=== PATIENT | female | born 1950 | race Caucasian/White ===

== ENCOUNTER → 2017-02-25 | Outpatient (CLI) | payer MEDICARE, BC ==
--- NOTE | 2017-02-25 11:09 | RAD ---
EXAM: Chest, 2 views. HISTORY: Productive cough and sinus drainage. COMPARISON: 06/05/2015. FINDINGS: Frontal and lateral views of the chest are obtained. There is a 1.8 cm nodular opacity overlying the right upper lobe. There is no effusion or pneumothorax. The heart is normal in size. There is a moderate to severe chronic mid thoracic compression fracture. There are advanced degenerative changes involving both shoulders. IMPRESSION: 1.8 cm nodular opacity overlying the right upper lobe, concerning for neoplasm. CT is recommended for characterization.
== END | disposition home or self-care (01) ==
LOC: DXRADRC 10:56
PROVIDERS: ATTEND Physician Assistant
DX: R05 Cough (principal); M48.54XA Collapsed vertebra, not elsewhere classified, thoracic region, initial encounter for fracture; M19.011 Primary osteoarthritis, right shoulder; M19.012 Primary osteoarthritis, left shoulder
CPT/HCPCS: 71020

== ENCOUNTER → 2017-03-04 | Outpatient (CLI) | payer MEDICARE, BC ==
[~2017-03-04] MED LIST: IOHEXOL 300 MG/ML 75 ML VIAL. IV ONE
--- NOTE | 2017-03-04 11:42 | RAD ---
CT of the chest without contrast, 03/04/2017: History: Abnormal chest radiograph No IV contrast was administered for this exam due to lack of adequate IV access. Comparison is made to a study from 05/28/2011. A bilobed spiculated soft tissue nodule has developed in the lateral aspect of the right lower lobe as best seen on image 42 of series #2. It measures approximately 25 x 26 x 12 mm. It is not calcified. There is a small triangular-shaped partially calcified opacity in the lateral aspect of the left upper lobe compatible with scarring or old granulomatous disease. A small unchanged branching linear opacity in the right upper lobe is also probably a scar. There appear to be several other smaller scattered parenchymal scars. There is no evidence of pleural fluid. There is mild calcific plaquing of the thoracic aorta without evidence of aneurysm. Minimal coronary artery calcification is noted. Several small mediastinal lymph nodes are seen without evidence of pathologic enlargement. A trace amount of pericardial fluid is present. There is an old moderate vertebral compression fracture at the T10 level. There are moderate scattered degenerative changes throughout the thoracic spine. IMPRESSION: 1. Right lower lobe pulmonary mass suggesting a primary lung malignancy. 2. Bilateral pulmonary scarring. 3. Old T10 vertebral compression fracture PQRS Compliance Statement: One or more of the following individualized dose reduction techniques were utilized for this examination: 1. Automated exposure control 2. Adjustment of the mA and/or kV according to patient size 3. Use of iterative reconstruction technique
== END | disposition home or self-care (01) ==
LOC: CT 10:35
PROVIDERS: ATTEND Physician Assistant
DX: J98.4 Other disorders of lung (principal); R91.1 Solitary pulmonary nodule; R91.8 Other nonspecific abnormal finding of lung field; I25.10 Atherosclerotic heart disease of native coronary artery without angina pectoris; I70.0 Atherosclerosis of aorta; M47.894 Other spondylosis, thoracic region; M48.54XD Collapsed vertebra, not elsewhere classified, thoracic region, subsequent encounter for fracture with routine healing
CPT/HCPCS: 71250; Q9967

== ENCOUNTER → 2017-04-28 | Outpatient (CLI) | payer MEDICARE, BC ==
--- NOTE | 2017-04-28 12:35 | RAD ---
CT of the chest without contrast, 04/28/2017: History: Follow-up lung nodule Noncontrast scans were obtained with multiplanar reconstructions produced. Comparison is made to a study from 03/04/2017. There is calcific plaquing of the thoracic aorta without evidence of aneurysm. Several coronary artery calcifications are noted. Small mediastinal lymph nodes are present without evidence of pathologic enlargement. There are scattered calcified granulomata in the lungs. There are scattered linear opacities in the lungs compatible with scars. There is an unchanged thin triangular opacity in the lateral aspect of left upper lobe which is partially calcified, compatible scarring. Some of these opacities are better defined on the current study due to the fact that thinner axial reconstructions were produced for today's exam. A spiculated mass seen in the right lower lobe on the previous study has resolved. There is only a thin residual linear opacity in this region, compatible with a scar. No new pulmonary mass or significant infiltrate is seen. There is no evidence of pleural fluid. There are scattered degenerative changes in the spine. There is an unchanged lower thoracic vertebral compression fracture at T10. IMPRESSION: 1. Interval resolution of the right lower lobe pulmonary mass seen on 03/04/2017. This lesion was presumably infectious or inflammatory in nature. 2. Scattered bilateral pulmonary scars. 3. No new abnormality is detected. PQRS Compliance Statement: One or more of the following individualized dose reduction techniques were utilized for this examination: 1. Automated exposure control 2. Adjustment of the mA and/or kV according to patient size 3. Use of iterative reconstruction technique
== END | disposition home or self-care (01) ==
LOC: CT 11:24
PROVIDERS: ATTEND Internal Medicine Critical Care Medicine
DX: R91.1 Solitary pulmonary nodule (principal); J84.10 Pulmonary fibrosis, unspecified; J98.4 Other disorders of lung; R91.8 Other nonspecific abnormal finding of lung field; I70.0 Atherosclerosis of aorta; M48.54XA Collapsed vertebra, not elsewhere classified, thoracic region, initial encounter for fracture
CPT/HCPCS: 71250

== ENCOUNTER 2020-03-14 13:15 | Emergency (ER) | payer MEDICARE, BC ==
[~2020-03-14] VITALS: Ht 149.9 cm; Wt 48.0 kg
[2020-03-14] MEDS ORDERED: IV NORMAL SALINE 1,000ML 1,000 ML IV ONE (13:45)
[2020-03-14] MEDS ORDERED: FAMOTIDINE 20 MG/2 ML VIAL IVP ONE (14:00)
[2020-03-14] MEDS ORDERED: ONDANSETRON PF 4 MG/2 ML VIAL. IVP ONE (14:00)
[2020-03-14 14:19] LABS: BASO % 0 % (0-3); EOS # 0.1 x10^3/uL (0.0-0.7); EOS % 2 % (0-3); HEMATOCRIT 45.2 % (36.0-47.0); HEMOGLOBIN 14.7 g/dL (12.0-15.5); LYMPH # 1.5 x10^3/uL (1.0-4.8); LYMPH % 17 % (24-48); MEAN CORPUSCULAR HEMOGLOBIN 29 pg (25-35); MEAN CORPUSCULAR HGB CONC 33 g/dL (31-37); MEAN CORPUSCULAR VOLUME 88 fL (79-100); MONO # 0.7 x10^3/uL (0.0-1.1); MONO % 8 % (0-9); NEUT # 6.4 x10^3uL (1.8-7.7); NEUT % 74 % (31-73); PLATELET COUNT 289 x10^3/uL (140-400); RED BLOOD COUNT 5.11 x10^6/uL (3.50-5.40); RED CELL DISTRIBUTION WIDTH 15.9 % (11.5-14.5); WHITE BLOOD COUNT 8.7 x10^3/uL (4.0-11.0)
--- NOTE | 2020-03-14 14:29 | PHYS DOC ---
General Adult EDM: Chief Complaint: COUGH HPI: HPI: Patient is a [age] year old [sex] who presents with [] Review of Systems: Review of Systems: Constitutional: Denies fever or chills Eyes: Denies change in visual acuity HENT: Denies nasal congestion or sore throat Respiratory: Denies cough or shortness of breath Cardiovascular: Denies chest pain or edema GI: Denies abdominal pain, nausea, vomiting, bloody stools or diarrhea : Denies dysuria Musculoskeletal: Denies back pain or joint pain Integument: Denies rash Neurologic: Denies headache, focal weakness or sensory changes Endocrine: Denies polyuria or polydipsia Lymphatic: Denies swollen glands Psychiatric: Denies depression or anxiety Heart Score: Risk Factors: Risk Factors: DM, Current or recent (<one month) smoker, HTN, HLP, family history of CAD, obesity. Risk Scores: Score 0 - 3: 2.5% MACE over next 6 weeks - Discharge Home Score 4 - 6: 20.3% MACE over next 6 weeks - Admit for Clinical Observation Score 7 - 10: 72.7% MACE over next 6 weeks - Early Invasive Strategies Current Medications: Current Meds: Current Medications Medications (Trade) Dose Ordered Sig/Jan Start Time Stop Time Status Last Admin Dose Admin Famotidine (Pepcid Vial) 20 mg 1X ONCE 03/14/20 14:00 03/14/20 14:01 DC 03/14/20 14:08 20 MG Ondansetron HCl (Zofran) 4 mg 1X ONCE 03/14/20 14:00 03/14/20 14:01 DC 03/14/20 14:08 4 MG Sodium Chloride 1,000 ml @ 1,000 mls/hr 1X ONCE 03/14/20 13:45 03/14/20 14:44 03/14/20 14:08 1,000 MLS/HR Allergies: Allergies: Allergies Coded Allergies Type Severity Reaction Last Updated Verified cephaeline Allergy Unknown 03/04/17 Yes fentanyl Allergy Unknown 03/04/17 Yes morphine Allergy Unknown 03/04/17 Yes Physical Exam: PE: Constitutional: Well developed, well nourished, no acute distress, non-toxic appearance. [] HENT: Normocephalic, atraumatic, bilateral external ears normal, oropharynx moist, no oral exudates, nose normal. [] Eyes: PERRLA, EOMI, conjunctiva normal, no discharge. [] Neck: Normal range of motion, no tenderness, supple, no stridor. [] Cardiovascular:Heart rate regular rhythm, no murmur [] Lungs & Thorax: Bilateral breath sounds clear to auscultation [] Abdomen: Bowel sounds normal, soft, no tenderness, no masses, no pulsatile masses. [] Skin: Warm, dry, no erythema, no rash. [] Back: No tenderness, no CVA tenderness. [] Extremities: No tenderness, no cyanosis, no clubbing, ROM intact, no edema. [] Neurologic: Alert and oriented X 3, normal motor function, normal sensory function, no focal deficits noted. [] Psychologic: Affect normal, judgement normal, mood normal. [] Current Patient Data: Labs: Laboratory Tests Test 03/14/20 13:50 White Blood Count 8.7 x10^3/uL (4.0-11.0) Red Blood Count 5.11 x10^6/uL (3.50-5.40) Hemoglobin 14.7 g/dL (12.0-15.5) Hematocrit 45.2 % (36.0-47.0) Mean Corpuscular Volume 88 fL (79-100) Mean Corpuscular Hemoglobin 29 pg (25-35) Mean Corpuscular Hemoglobin Concent 33 g/dL (31-37) Red Cell Distribution Width 15.9 % (11.5-14.5) H Platelet Count 289 x10^3/uL (140-400) Neutrophils (%) (Auto) 74 % (31-73) H Lymphocytes (%) (Auto) 17 % (24-48) L Monocytes (%) (Auto) 8 % (0-9) Eosinophils (%) (Auto) 2 % (0-3) Basophils (%) (Auto) 0 % (0-3) Neutrophils # (Auto) 6.4 x10^3uL (1.8-7.7) Lymphocytes # (Auto) 1.5 x10^3/uL (1.0-4.8) Monocytes # (Auto) 0.7 x10^3/uL (0.0-1.1) Eosinophils # (Auto) 0.1 x10^3/uL (0.0-0.7) Basophils # (Auto) 0.0 x10^3/uL (0.0-0.2) EKG: EKG: @1357 NSR at 96ms, QRS 82ms, QT/QTc 336/431ms Radiology/Procedures: Radiology/Procedures: [] Course & Med Decision Making: Course & Med Decision Making Pertinent Labs and Imaging studies reviewed. (See chart for details) [] Dragon Disclaimer: Dragon Disclaimer: This electronic medical record was generated, in whole or in part, using a voice recognition dictation system. Departure Departure: Impression: Primary Impression: Nausea vomiting and diarrhea Additional Impressions: Suspected 2019 novel coronavirus infection Hypomagnesemia Aphthous ulcer of mouth Disposition: 01 DC HOME SELF CARE/HOMELESS Condition: STABLE Referrals: DARREN SMITH MD (PCP) Patient Instructions: Canker Sores, Diarrhea, [id number], Diet for Diarrhea, Adult, Hypomagnesemia, Nausea and Vomiting, [id number] Additional Instructions: You have been tested for or diagnosed with COVID-19. It is an infection caused by a new type of coronavirus. COVID-19 will cause cold-like or mild flu symptoms in most. It can cause more severe symptoms like problems breathing in some. There is no treatment for COVID-19. The body will clear the infection over time. Self-care will help to ease discomfort. Steps to Take: Self-Care Rest as needed. Healthy habits may help you feel better. Steps include: Choose healthy foods including fruits and vegetables. Drink water throughout the day. Get plenty of sleep each night. If you smoke, try to quit. It may ease breathing. Avoid alcohol. Keep Others Healthy The virus can spread to others. Droplets are released every time you sneeze or cough. The droplets can get into the mouth, nose, or eyes of people near you and lead to infection. To lower the chances of spreading COVID-19 to others: Stay at home until your doctor has said it is safe to leave. If you tested positive this will mean staying isolated until both of the following are true: At least 7 days have passed since the start of illness. You are free of fever for at least 72 hours without the use of medicine. During this time: - Avoid public areas, events, or transportation. Do not return to work or school until your doctor has said it is safe to do so. - Call ahead if you need to go to a medical center. Let them know you may have COVID-19. It will help them guide you where to go. They may also ask you to wear a facemask when you come to the office. - If you call for emergency medical services, let them know you may have COVID- 19. While at home: - Try to avoid close contact with others. Stay about 6 feet away. - If possible, spend most of your time in a separate room from others. - Use a face mask if you will be in close contact with others such as sharing a room or vehicle. - Have someone wipe down common surfaces in the home. Use household emt every day on areas like doorknobs, counters, or sinks. - Cough or sneeze into a tissue. Throw the tissue away right after use. If a tissue is not available, cough or sneeze into your elbow. - Wash your hands often. Wash them after sneezing or coughing. Use soap and water and wash for at least 20 seconds. Alcohol based hand grain cleaner can be used if soap and water is not available. - Do not prepare food for others. Avoid sharing personal items like forks, spoons, or toothbrushes. - Avoid close contact with pets while you are sick. There is no evidence of the virus passing to pets. This is a safety step until more is known about this virus. Isolation can be frustrating. Social interaction can help. Keep in touch with friends and family through phone and tech options. You can still interact with others in your home, just keep a safe distance of about 6 feet. Follow-up: Your doctors office will check in with you to see if there are any changes in your health. You may be asked to keep track of symptoms to share with them. They will also let you know when you are clear to be in public again. Problems to Look Out For: Contact your doctor if your recovery is not going as you expect. Get emergency care if you have problems such as: - Trouble breathing - Nonstop chest pain or pressure - Changes in awareness, confusion, or problems waking - Lips or face have bluish color - Worsening of symptoms If you think you have an emergency, call for emergency medical services right away. As taken from [facility] Chlorhexidine Gluconate (CHLORHEXIDINE GLUCONATE) 473 Ml Mouthwash 15 ML MM BID for Mouth lesions, #473 ML Prov: MELANIE MALLORY DO 03/14/20 Hyoscyamine Sulfate (LEVSIN-SL) 0.125 Mg Tab.subl 0.125 MG SL Q4-6HRS PRN for PAIN, #14 TAB Prov: MELANIE MALLORY DO 03/14/20 Famotidine (PEPCID) 20 Mg Tablet 1 TAB PO BID for gastritis, #20 TAB Prov: MELANIE MALLORY DO 03/14/20 Ondansetron (ONDANSETRON ODT) 4 Mg Tab.rapdis 1 TAB PO PRN Q6-8HRS PRN for NAUSEA, #16 TAB Prov: MELANIE MALLORY DO 03/14/20 MELANIE MALLORY DO Mar 14, 2020 14:29
[2020-03-14 14:54] LABS: CALCIUM 9.3 mg/dL (8.5-10.1); CREATININE 1.2 mg/dL (0.6-1.0); GFR 44.3; POTASSIUM 4.4 mmol/L (3.5-5.1)
--- NOTE | 2020-03-14 14:58 | RAD ---
CHEST AP ONLY History: Cough, weakness Comparison: February 25, 2017 Findings: Single view of the chest is submitted. There is no infiltrate, pneumothorax, or effusion. The pericardial cardiac silhouette is within normal limits in size. There is emphysema. There is likely small granuloma of the superior left hemithorax. Impression: 1. There is no radiographic evidence of acute cardiopulmonary disease. There is emphysema. Electronically signed by: Hari Thomas MD (03/14/2020 2:55 PM) [facility]
[2020-03-14 15:08] LABS: ALBUMIN 3.3 g/dL (3.4-5.0); ALBUMIN/GLOBULIN RATIO 0.9 (1.0-1.7); MAGNESIUM 1.5 mg/dL (1.8-2.4); TOTAL BILIRUBIN 0.4 mg/dL (0.2-1.0); TOTAL PROTEIN 7.1 g/dL (6.4-8.2)
[2020-03-14] MEDS ORDERED: HYOS0.1265 SL (15:35)
[2020-03-14] MEDS ORDERED: FAMO-63 PO (15:35)
[2020-03-14] MEDS ORDERED: ONDA4TAB12 PO (15:35)
[2020-03-14] MEDS ORDERED: MAGNESIUM CHLORIDE ER 64 MG TABLET.ER PO ONE (15:45)
--- NOTE | 2020-03-14 16:46 | EKG ---
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
[2020-03-14 16:49] LABS: BILIRUBIN,URINE NEG (NEG); CLARITY,URINE CLEAR; COLOR,URINE YELLOW; GLUCOSE,URINE NEG (NEG); NITRITE,URINE NEG (NEG); UROBILINOGEN,URINE 0.2 mg/dL (0.2 mg/dL)
[2020-03-14 16:55] LABS: BACTERIA,URINE FEW /HPF (0-FEW); RBC,URINE 0 /HPF (0-2); SQUAMOUS EPITHELIAL CELL,UR OCC /LPF; WBC,URINE OCC /HPF (0-4)
[2020-03-14 17:00] VITALS: BP 136/64
[2020-03-14] MEDS ORDERED: CHLO473M MM (17:11)
== END 2020-03-14 17:17 | disposition home or self-care (01) ==
LOC: ER 13:15
DX: R11.2 Nausea with vomiting, unspecified (principal); R19.7 Diarrhea, unspecified; E83.42 Hypomagnesemia; K12.0 Recurrent oral aphthae; Z20.828 Contact with and (suspected) exposure to other viral communicable diseases; Z88.1 Allergy status to other antibiotic agents; Z88.5 Allergy status to narcotic agent; Z88.8 Allergy status to other drugs, medicaments and biological substances
CPT/HCPCS: 36415; 71045; 80053; 81001; 82553; 83605; 83690; 83735; 84484; 85025; 85610; 85730; 93005; 96361; 96374; 96375; 99285; C9803; J2405; J3490; J7030; U0003

== ENCOUNTER → 2020-10-09 | Outpatient (CLI) | payer MEDICARE, BC ==
[~2020-10-09] MED LIST changes: +CHLO473M MM; +FAMO-63 PO; +HYOS0.1265 SL; -IOHEXOL 300 MG/ML 75 ML VIAL. IV ONE; +ONDA4TAB12 PO
[2020-10-09 13:23] LABS: BASO % 0 % (0-3); EOS # 0.2 x10^3/uL (0.0-0.7); EOS % 2 % (0-3); HEMATOCRIT 36.6 % (36.0-47.0); HEMOGLOBIN 12.1 g/dL (12.0-15.5); LYMPH # 1.3 x10^3/uL (1.0-4.8); LYMPH % 16 % (24-48); MEAN CORPUSCULAR HEMOGLOBIN 30 pg (25-35); MEAN CORPUSCULAR HGB CONC 33 g/dL (31-37); MEAN CORPUSCULAR VOLUME 92 fL (79-100); MONO # 0.4 x10^3/uL (0.0-1.1); MONO % 5 % (0-9); NEUT # 6.6 x10^3uL (1.8-7.7); NEUT % 77 % (31-73); PLATELET COUNT 311 x10^3/uL (140-400); RED BLOOD COUNT 3.99 x10^6/uL (3.50-5.40); RED CELL DISTRIBUTION WIDTH 17.4 % (11.5-14.5); WHITE BLOOD COUNT 8.6 x10^3/uL (4.0-11.0)
[2020-10-09 13:27] LABS: ALBUMIN 3.5 g/dL (3.4-5.0); BASO % 1 % (0-3); EOS # 0.2 x10^3/uL (0.0-0.7); EOS % 2 % (0-3); HEMATOCRIT 36.7 % (36.0-47.0); HEMOGLOBIN 12.1 g/dL (12.0-15.5); LYMPH # 1.3 x10^3/uL (1.0-4.8); LYMPH % 16 % (24-48); MEAN CORPUSCULAR HEMOGLOBIN 30 pg (25-35); MEAN CORPUSCULAR HGB CONC 33 g/dL (31-37); MEAN CORPUSCULAR VOLUME 92 fL (79-100); MONO # 0.4 x10^3/uL (0.0-1.1); MONO % 4 % (0-9); NEUT # 6.7 x10^3uL (1.8-7.7); NEUT % 78 % (31-73); PLATELET COUNT 320 x10^3/uL (140-400); RED BLOOD COUNT 3.98 x10^6/uL (3.50-5.40); RED CELL DISTRIBUTION WIDTH 16.9 % (11.5-14.5); TOTAL PROTEIN 7.3 g/dL (6.4-8.2); WHITE BLOOD COUNT 8.6 x10^3/uL (4.0-11.0)
[2020-10-09 13:46] LABS: ALBUMIN 3.5 g/dL (3.4-5.0); ALBUMIN/GLOBULIN RATIO 0.9 (1.0-1.7); C REACTIVE PROTEIN 10.7 mg/L (0-3.3); CALCIUM 9.5 mg/dL (8.5-10.1); CREATININE 0.8 mg/dL (0.6-1.0); GFR 70.7; POTASSIUM 3.5 mmol/L (3.5-5.1); TOTAL BILIRUBIN 0.5 mg/dL (0.2-1.0); TOTAL PROTEIN 7.3 g/dL (6.4-8.2)
[2020-10-09 14:36] LABS: SEDIMENTATION RATE 39 (0-25)
[2020-10-10 05:09] LABS: DHEA SO4 14.7 ug/dL (20.4-186.6)
[2020-10-10 19:14] LABS: ANA INTERP Positive (.)
[2020-10-10 19:44] LABS: FREE T4 1.38 ng/dL (0.76-1.46); THYROID STIM HORMONE (TSH) 0.464 uIU/mL (0.358-3.740)
== END ==
LOC: LAB 11:26
PROVIDERS: ATTEND Internal Medicine
DX: M05.741 Rheumatoid arthritis with rheumatoid factor of right hand without organ or systems involvement (principal)
CPT/HCPCS: 36415; 80053; 82040; 82306; 82607; 82627; 82728; 82746; 84155; 84207; 84255; 84402; 84403; 84425; 84439; 84443; 84630; 85025; 85651; 86038; 86140

== ENCOUNTER → 2020-10-09 | Outpatient (CLI) | payer MEDICARE, BC | LOC: LAB 11:13 | PROVIDERS: ATTEND Internal Medicine Interventional Cardiology | DX: E78.5 Hyperlipidemia, unspecified (principal) | CPT/HCPCS: 80061 ==

== ENCOUNTER → 2021-01-17 | Outpatient (CLI) | payer MEDICARE, BC ==
--- NOTE | 2021-01-17 15:02 | RAD ---
XR CHEST 2V History: Short of air Comparison: 03/14/2020 Technique: PA and lateral chest radiographs. Findings: The lungs are hyperinflated with increased AP diameter. No airspace consolidation, pleural effusion o r pneumothorax. The cardiomediastinal silhoutte and pulmonary vasculature are within normal limits. D egenerative changes of the thoracic spine and shoulders. Redemonstrated T10 compression fracture. Sof t tissues are unremarkable. Impression: 1. No acute cardiopulmonary process. Electronically signed by: Zane Negro MD (01/17/2021 3:00 PM) [id number]
== END ==
LOC: RAD 13:53
PROVIDERS: ATTEND Nurse Practitioner Family
DX: M48.54XA Collapsed vertebra, not elsewhere classified, thoracic region, initial encounter for fracture (principal); J98.11 Atelectasis; M47.814 Spondylosis without myelopathy or radiculopathy, thoracic region; M19.012 Primary osteoarthritis, left shoulder; M19.011 Primary osteoarthritis, right shoulder
CPT/HCPCS: 71046

== ENCOUNTER → 2021-01-28 | Outpatient (CLI) | payer MEDICARE, BC ==
[~2021-01-28] MED LIST changes: +IOHEXOL 240 MG/ML 50ML VIAL. ONE
--- NOTE | 2021-01-28 16:20 | RAD ---
EXAM: CT Abdomen and Pelvis with IV contrast CLINICAL HISTORY: LOWER LEFT ABDOMINAL PAIN COMPARISON: none TECHNIQUE: Helical CT of the abdomen and pelvis was performed following the administration of intrave nous contrast. Axial, coronal and sagittal reformatted images were generated. PQRS compliance statement - One or more of the following individualized dose reduction techniques wer e utilized for this study: 1. Automated exposure control 2. Adjustment of the mA and/or kV according to patient size 3. Use of iterative reconstruction technique FINDINGS: Lower Chest: Bronchiectasis lung bases. 4 mm left lower lobe lung nodule. Abdomen and Pelvis: Liver, spleen, adrenal glands and pancreas are unremarkable. No focal renal lesion. No hydronephrosis . No hydroureter. Cholecystectomy clips are seen. No biliary ductal dilatation. Appendix is not seen. Moderate colonic stool content is seen. No small or large bowel dilatation. No bowel obstruction. Aortic calcifications are seen. Aorta is normal in caliber. No abdominal lymphadenopathy. Right exter nal iliac lymph node measures 1.3 x 1.2 cm. Additional prominent to borderline enlarged iliac chain a nd pelvic sidewall lymph nodes are seen. Streak artifact from the right hip arthroplasty limits evalu ation of the pelvis. The bladder is mostly obscured. Trace fat-containing periumbilical hernia. Bones: Suspected loosening about the femoral component of the right hip arthroplasty partially profiled alth ough evaluation limited by extensive streak artifact. Height loss of the T10 vertebral body, age-inde terminate compression fracture IMPRESSION: 1. Prominent and borderline enlarged pelvic lymph nodes possibly reactive. 2. Moderate colonic stool content. No bowel obstruction. Electronically signed by: Dimitry Slaughter MD (01/28/2021 4:18 PM) [id number]
== END ==
LOC: CT 10:13
PROVIDERS: ATTEND Family Medicine
DX: R59.0 Localized enlarged lymph nodes (principal); J47.9 Bronchiectasis, uncomplicated; R91.1 Solitary pulmonary nodule; I70.0 Atherosclerosis of aorta; Z96.641 Presence of right artificial hip joint; Z90.49 Acquired absence of other specified parts of digestive tract
CPT/HCPCS: 74176

== ENCOUNTER → 2021-08-14 | Outpatient (CLI) | payer MEDICARE, BC ==
[~2021-08-14] MED LIST changes: -IOHEXOL 240 MG/ML 50ML VIAL. ONE
--- NOTE | 2021-08-15 09:35 | RAD ---
EXAM: Bilateral feet, 3 views. HISTORY: Pain with weightbearing. COMPARISON: None. FINDINGS: Left foot: 3 views of the left foot are obtained. There is a severe left hallux valgus deformity and first metatarsal phalangeal joint space narrowing, subchondral sclerosis, subchondral cyst formation and bony remodeling. There is chronic subluxation of the second through fifth metatarsal phalangeal j oints with chronic deformity involving the metatarsal heads due to suspected erosive changes such as can be seen with psoriatic arthritis. There is severe midfoot and hindfoot joint space narrowing with bony remodeling, sclerosis and spurring. There are fixation screws within the medial and lateral mal leoli. There is a visible chronic appearing fracture line along the distal tibial metaphysis proximal to the fixation screw, possibly due to a chronic nonunited fracture. There are tibiotalar joint loos e bodies. There are third through fifth hammertoe deformities. There is bone demineralization. The tu ft of the fifth distal phalanx is not well seen due to demineralization. This limits evaluation for o steomyelitis. There is a small soft tissue calcification along the lateral aspect of the forefoot. Right foot: 3 views of the right foot are obtained. There is chronic deformity of the metatarsal head s likely due to erosions. There are associated subluxations involving the second through fifth metata rsophalangeal joints. There is severe talonavicular joint space narrowing, subchondral sclerosis and spurring. There is a tiny plantar spur. There are second through fifth hammertoe deformities. IMPRESSION: 1. No convincing acute fracture. 2. Suspected chronic fracture line within the distal left fibula proximal to a fixation screw, favori ng a chronic nonunited fracture. This is not formally assessed on this exam. 3. Left hallux valgus and severe first metatarsal phalangeal joint osteoarthritis. 4. Severe left mid and hindfoot degenerative change with associated bony remodeling. 5. Erosive changes involving the left greater than right metatarsal heads and associated chronic meta tarsal phalangeal joint subluxation. Correlate for erosive arthropathy such as psoriatic arthritis. 6. Bilateral hammertoe deformities. 6. Bone demineralization. This limits evaluation for osteomyelitis. Electronically signed by: Christina Valera MD (08/15/2021 9:32 AM) [id number]
== END ==
LOC: RAD 10:41
PROVIDERS: ATTEND Podiatrist Foot & Ankle Surgery
DX: S93.144A Subluxation of metatarsophalangeal joint of right lesser toe(s), initial encounter (principal); M19.072 Primary osteoarthritis, left ankle and foot; M19.071 Primary osteoarthritis, right ankle and foot; M20.12 Hallux valgus (acquired), left foot; M20.11 Hallux valgus (acquired), right foot; M20.42 Other hammer toe(s) (acquired), left foot; M20.41 Other hammer toe(s) (acquired), right foot; M86.8X7 Other osteomyelitis, ankle and foot; M25.872 Other specified joint disorders, left ankle and foot; M25.871 Other specified joint disorders, right ankle and foot; L40.50 Arthropathic psoriasis, unspecified; X58.XXXA Exposure to other specified factors, initial encounter; Y93.89 Activity, other specified; Y92.89 Other specified places as the place of occurrence of the external cause; Y99.8 Other external cause status
CPT/HCPCS: 73630-50

== ENCOUNTER 2021-10-10 08:56 | Emergency (ER) | payer MEDICARE, BC ==
[~2021-10-10] VITALS: Ht 149.9 cm; Wt 45.4 kg
--- NOTE | 2021-10-10 09:35 | PHYS DOC ---
Past History Past Medical History: COPD, High Cholesterol, Hypertension Additional Past Medical Histor: RA, Sjogren's Past Surgical History: Hip Replacement, Knee Replacement Additional Past Surgical Histo: Right femur ORIF, metatarsal bone surgery Smoking: Non-smoker Alcohol Use: None Drug Use: None General Adult EDM: Chief Complaint: BACK PAIN - NO INJURY HPI: HPI: Patient is a 71-year-old female who arrives by private vehicle to the emergency department complaining of right-sided thoracic back pain. Patient reports she awoke this morning at approximately 430 with this pain. Patient states it feels like a dull ache inside of her right shoulder blade. Patient states upon moving the pain migrated through to her chest and over to the midsternal region. Patient states her pain is exacerbated with any movement. Patient is of the believe this may be related to GERD however she does acknowledge that maybe she slept awkwardly. She denies any history of fever, shortness of air or cough. Additionally she denies any substernal heaviness associated with this pain. Additionally she states she did not suffer from any blunt trauma. She is awake, alert and nontoxic-appearing. Review of Systems: Review of Systems: Constitutional: Denies fever or chills Eyes: Denies change in visual acuity HENT: Denies nasal congestion or sore throat Respiratory: Denies cough or shortness of breath Cardiovascular: Reports chest wall pain. Denies edema GI: Denies abdominal pain, nausea, vomiting, bloody stools or diarrhea : Denies dysuria Musculoskeletal: Reports back pain. Denies joint pain Integument: Denies rash Neurologic: Denies headache, focal weakness or sensory changes Endocrine: Denies polyuria or polydipsia Lymphatic: Denies swollen glands Psychiatric: Denies depression or anxiety Allergies: Allergies: Allergies Coded Allergies Type Severity Reaction Last Updated Verified cephaeline Allergy Unknown 03/04/17 Yes fentanyl Allergy Unknown 03/04/17 Yes morphine Allergy Unknown 03/04/17 Yes Physical Exam: PE: Constitutional: Well developed, well nourished, no acute distress, non-toxic appearance. [] HENT: Normocephalic, atraumatic, bilateral external ears normal, oropharynx moist, no oral exudates, nose normal. [] Eyes: PERRLA, EOMI, conjunctiva normal, no discharge. [] Neck: Normal range of motion, no tenderness, supple, no stridor. [] Cardiovascular:Heart rate regular rhythm, no murmur [] Lungs & Thorax: TTP of thoracic musculature medial to right scapula. Bilateral breath sounds clear to auscultation [] Abdomen: Bowel sounds normal, soft, no tenderness, no masses, no pulsatile masses. [] Skin: Warm, dry, no erythema, no rash. [] Back: No tenderness, no CVA tenderness. [] Extremities: No tenderness, no cyanosis, no clubbing, ROM intact, no edema. [] Neurologic: Alert and oriented X 3, normal motor function, normal sensory function, no focal deficits noted. [] Psychologic: Affect normal, judgement normal, mood normal. [] EKG: EKG: EKG was obtained at 9:14 AM and revealed a sinus rhythm with a ventricular rate of 85 bpm. There are no acute ST/T wave changes to denote ischemia. There is no STEMI present. This is an otherwise normal EKG. [] Radiology/Procedures: Radiology/Procedures: [][place] [address] IMAGING REPORT Signed PATIENT: PHILLY FERNÁNDEZ ACCOUNT: [id number] : 1950 LOCATION: ER AGE: 71 SEX: F EXAM STATUS: REG ER ORD. PHYSICIAN: JUSTINE SAMPSON DO REASON: Right-sided chest pain PROCEDURE: CHEST PA & LATERAL EXAM: Chest, 2 views. HISTORY: Chest pain. COMPARISON: 01/17/2021 FINDINGS: 2 views the chest are obtained. There is no infiltrate, pleural effusion or pneumothorax. The heart is normal in size. There is a stable nodular opacity within the lateral left upper lobe secondary to calcified granulomas and scarring demonstrated on a CT performed 04/28/2017. There are nodules overlying the bilateral lower lungs due to nipple shadows. There are chronic appearing interstitial changes. There is hyperinflation likely due to emphysema. IMPRESSION: Chronic appearing changes. No acute finding. Electronically signed by: Christina Clemens MD (10/10/2021 10:01 AM) [id number] DICTATED AND SIGNED BY: CHRISTINA CLEMENS MD DATE: 10/10/21 1000 CC: JUSTINE SAMPSON DO; DARREN SMITH MD ~ Heart Score: C/O Chest Pain: No HEART Score for Chest Pain: HEART Score for Chest Pain Response (Comments) Value History Slighlty/Non-Suspicious 0 ECG Normal 0 Age > 65 2 Risk Factors 1 or 2 Risk Factors 1 Total 3 Risk Factors: Risk Factors: DM, Current or recent (<one month) smoker, HTN, HLP, family history of CAD, obesity. Risk Scores: Score 0 - 3: 2.5% MACE over next 6 weeks - Discharge Home Score 4 - 6: 20.3% MACE over next 6 weeks - Admit for Clinical Observation Score 7 - 10: 72.7% MACE over next 6 weeks - Early Invasive Strategies Course & Med Decision Making: Course & Med Decision Making Pertinent Labs and Imaging studies reviewed. Patient states her discomfort is letting up and reports this occurred after belching. She is curious as to whether or not maybe this may be a complication of her GERD. X-ray imaging does not reveal any acute abnormality in the patient's EKG was well within normal limits without any evidence of ischemia or pathological change. Moreover the patient states she does not have any substernal chest pain. I advised that she return should she have any changes to her condition. The patient understands and has agreed to do so. She is nontoxic-appearing and stable for discharge. [] Dragon Disclaimer: Florencia Disclaimer: This electronic medical record was generated, in whole or in part, using a voice recognition dictation system. Departure Departure: Impression: Primary Impression: Strain of thoracic paraspinal muscles excluding T1 and T2 levels Disposition: HOME / SELF CARE / HOMELESS Condition: STABLE Referrals: DARREN SMITH MD (PCP) Patient Instructions: Chest Pain (Nonspecific), Muscle Strain Additional Instructions: Please return to the emergency department with any change in your condition. Specifically return for any shortness of air or substernal chest pain. JUSTINE SAMPSON DO October 10, 2021 09:35
--- NOTE | 2021-10-10 10:03 | RAD ---
EXAM: Chest, 2 views. HISTORY: Chest pain. COMPARISON: 01/17/2021 FINDINGS: 2 views the chest are obtained. There is no infiltrate, pleural effusion or pneumothorax. T he heart is normal in size. There is a stable nodular opacity within the lateral left upper lobe seco ndary to calcified granulomas and scarring demonstrated on a CT performed 04/28/2017. There are nodul es overlying the bilateral lower lungs due to nipple shadows. There are chronic appearing interstitia l changes. There is hyperinflation likely due to emphysema. IMPRESSION: Chronic appearing changes. No acute finding. Electronically signed by: Christina Valera MD (10/10/2021 10:01 AM) [id number]
[2021-10-10 10:30] VITALS: BP 134/77
--- NOTE | 2021-10-10 22:07 | EKG ---
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
== END 2021-10-10 10:32 | disposition home or self-care (01) ==
LOC: ER 08:56
DX: S29.012A Strain of muscle and tendon of back wall of thorax, initial encounter (principal); R07.89 Other chest pain; J44.9 Chronic obstructive pulmonary disease, unspecified; E78.00 Pure hypercholesterolemia, unspecified; I10 Essential (primary) hypertension; M06.9 Rheumatoid arthritis, unspecified; Z88.5 Allergy status to narcotic agent; Z88.8 Allergy status to other drugs, medicaments and biological substances; X58.XXXA Exposure to other specified factors, initial encounter; Y93.89 Activity, other specified; Y92.89 Other specified places as the place of occurrence of the external cause; Y99.8 Other external cause status
CPT/HCPCS: 71046; 93005; 99283